=== PATIENT | male | born 1945 | race Caucasian/White ===

== ENCOUNTER 2016-12-28 10:14 | Emergency (ER) | payer OTHER, MEDICARE ==
[~2016-12-28] VITALS: Ht 180.3 cm; Wt 99.1 kg
[2016-12-28 13:55] VITALS: BP 165/79
== END 2016-12-28 13:57 | disposition home or self-care (01) ==
LOC: EME 10:14
DX: M79.662 Pain in left lower leg (principal); M54.2 Cervicalgia; Z87.820 Personal history of traumatic brain injury
CPT/HCPCS: 93971; 99281; 99285